=== PATIENT | male | born 1980 | race Caucasian/White ===

== ENCOUNTER 2024-12-27 19:34 | Emergency (ER) | payer BC, SELFPAY ==
[2024-12-27 19:46] VITALS: BP 154/99; PULSE 80; RESP 18; TEMP 37.1; O2SAT 97; BMI 25.4
--- NOTE | 2024-12-27 20:12 | ED_ITS ---
HPI - General Adult General Chief complaint: Psychiatric Problem/Disorder Stated complaint: Mental health Time Seen by Provider: 12/27/24 19:36 History of Present Illness HPI narrative: Patient is a 44-year-old gentleman who has been increasingly anxious the last week or so. He is having increasing racing thoughts. Difficulty sleeping. He had some thoughts of suicidal ideation last night. Who at urgent care earlier today was given a prescription for trazodone. He took 1 and that did help. He comes emergency room with his is very concerned. The patient has no previous history of any psychiatric problems is otherwise healthy. He declines any alcohol or drug use. He has otherwise been feeling in good health. Related Data Home Medications ?Medication ?Instructions ?Recorded ?Confirmed trazodone 50 mg tablet 50 mg PO QHS PRN 12/27/24 12/27/24 Allergies Allergy/AdvReac Type Severity Reaction Status Date / Time No Known Drug Allergies Allergy Verified 12/27/24 19:56 Review of Systems Status of ROS: Reports: 10 or more systems reviewed and unremarkable except as noted in History and below Exam Narrative: Exam Narrative: EXAM GENERAL: Patient appears extremely anxious. EYES: No scleral icterus. LYMPH: No supraclavicular or cervical lymphadenopathy. SKIN: Visible skin seen during exam normal or with benign process only. EXT: No dependent lower extremity pedal edema. HEART: Regular rate and rhythm with no murmurs, rubs, or gallops. LUNGS: Clear to auscultation bilaterally with no crackles or wheezes. ABD: Soft, non tender, non distended. PSYCH: Speech is pressured. Poor eye contact. Const: Vital Signs, click to edit/add: Vital Signs - 24 hr 12/27/24 19:46 Temperature 98.8 F Pulse Rate [Left P ulse Oximeter] 80 Respiratory Rate 18 Blood Pressure [Ri ght Upper Arm] 154/99 H Pulse Oximetry 97 Oxygen Delivery Me thod Room Air Course Course ED Course: Patient seen and examined. Standard laboratory studies collected. Mental health consultation requested. Reevaluation(s) Reevaluation #1: Smoked a mental health provider. Patient is suicidal and warrants placement. Lab workup is unremarkable. Patient remaining as voluntary at this point. Vital Signs Vital signs: Initial Vital Signs Temperature 98.8 F 12/27/24 19:46 Temperature Source Temporal Artery Scan 12/27/24 19:46 Pulse Rate 80 12/27/24 19:46 Pulse Rhythm Regular 12/27/24 19:46 Respiratory Rate 18 12/27/24 19:46 Blood Pressure 154/99 H 12/27/24 19:46 Blood Pressure Mean 117 H 12/27/24 19:46 Blood Pressure Position Sitting 12/27/24 19:46 Pulse Oximetry 97 12/27/24 19:46 Oxygen Delivery Method Room Air 12/27/24 19:46 Vital Signs Temperature 98.8 F 12/27/24 19:46 Pulse Rate 80 12/27/24 19:46 Respiratory Rate 18 12/27/24 19:46 Blood Pressure 154/99 H 12/27/24 19:46 Pulse Oximetry 97 12/27/24 19:46 Oxygen Delivery Method Room Air 12/27/24 19:46 Temperature 98.8 F 12/27/24 19:46 Pulse Rate 80 12/27/24 19:46 Respiratory Rate 18 12/27/24 19:46 Blood Pressure 154/99 H 12/27/24 19:46 Pulse Oximetry 97 12/27/24 19:46 Oxygen Delivery Method Room Air 12/27/24 19:46 Medications Administered Medications: Discontinued Medications Generic Name Dose Route Start Last Admin Trade Name Freq PRN Reason Stop Dose Admin Lorazepam 1 mg 12/27/24 22:21 12/27/24 22:25 Lorazepam 1 Mg Tablet PO 12/27/24 22:22 1 mg ONCE ONE Administration Medical Decision Making Lab Data Labs: Lab Results 12/27/24 12/27/24 Range/Units 20:25 20:30 WBC 10.08 (4.50-11.00) K/uL RBC 4.93 (4.30-5.90) m/uL Hgb 15.2 (13.5-17.5) gm/dL Hct 45.3 (37.0-53.0) % MCV 92 (80-100) fL MCH 31 (26-34) pg MCHC 34 (32-36) gm/dL RDW Coeff of Octavio 12.3 (11.5-15.5) % Plt Count 313 (140-440) K/uL Neut % (Auto) 75.3 H (42.0-72.0) % Lymph % (Auto) 16.4 L (20-44) % [place] % (Auto) 6.8 (0.0-11.0) % Eos % (Auto) 1.2 (0.0-7.0) % Baso % (Auto) 0.2 (0.0-3.0) % Neut # (Auto) 7.60 H (1.7-7.0) K/uL Lymph # (Auto) 1.70 (0.90-2.90) K/uL [place] # (Auto) 0.70 (0.00-0.90) K/UL Eos # (Auto) 0.12 (0.00-0.50) K/uL Baso # (Auto) 0.02 (0.00-0.30) K/uL Abs Immat Gran (auto) 0.01 (0.00-0.30) K/uL Imm/Tot Granulo (auto) 0.1 % Sodium 138 (135-149) mmol/L Potassium 3.7 (3.6-5.1) mmol/L Chloride 105 (96-114) mmol/L Carbon Dioxide 26 (20-32) mmol/L Anion Gap 7 (7-15) mEq/L BUN 17 (5-24) mg/dL Creatinine 1.0 (0.5-1.5) mg/dL Estimated Creat Clear 96.23 Estimated GFR 96 ml/min Glucose 96 (60-115) mg/dL Calcium 9.1 (8.4-10.6) mg/dL Total Bilirubin 0.7 (0.1-1.5) mg/dL AST 29 (12-35) U/L ALT 33 (4-50) U/L Alkaline Phosphatase 80 (40-150) U/L Total Protein 7.3 (6.0-8.3) g/dL Albumin 4.5 (3.3-5.0) g/dL Salicylates < 1.0 L (1.0-10) mg/dL Urine Opiates Screen Negative (Negative) Ur Oxycodone Screen Negative (Negative) Urine Methadone Screen Negative (Negative) Acetaminophen < 10.0 (10.0-30.0) ug/mL Ur Barbiturates Screen Negative (Negative) U Tricyclic Antidepress Negative (Negative) Ur Phencyclidine Scrn Negative (Negative) Ur Amphetamines Screen Negative (Negative) U Methamphetamines Scrn Negative (Negative) U Benzodiazepines Scrn Negative (Negative) Urine Cocaine Screen Negative (Negative) U Marijuana (THC) Screen Negative (Negative) Ur Drug Screen Comment See Note Ethyl Alcohol < 0.01 (0.01-0.03) % SARS-CoV-2 (PCR) Negative SARS-CoV-2 (Negative) Influenza Type A (PCR) Negative PCR FLU A (Negative) Influenza Type B (PCR) Negative PCR FLU B (Negative) Discharge Plan Discharge Clinical Impression: Suicidal ideation Patient Disposition: Xfer Psychiatric Hosp Condition: Stable Activity Level: Other Discharge Diet: Other Prescriptions: No Action trazodone 50 mg tablet 50 mg PO QHS PRN Follow Up/Referrals: Provider,Not a Local [Primary Care Provider] - Stand Alone Forms: [employer] Info Instructions
--- OUTSIDE RECORDS SUMMARY | 2024-12-27 20:26 | XMS_ITS | Clinical Summary ---
Author Organization [facility] Address [address] [place] [id number] Care Team Providers Care Digital Marketing Specialist Name Role Phone Pcp, No Primary Care Provider Unavailabl e Allergies No known active allergies Medications dextroamphetamine -amphetamine (AdderalL) 10 mg tabletIndications :Attention deficit hyperactivity disorder (ADHD), predominantly inattentive type Take 1 Tablet (10 mg) by mouth two times daily. 60 Tablet 3 Active Additional Information Patient not taking.Reported on 12/27/2024 dextroamphetamine -amphetamine (AdderalL) 10 mg tabletIndications :Attention deficit hyperactivity disorder (ADHD), predominantly inattentive type Take 1 Tablet (10 mg) by mouth two times daily. 60 Tablet 3 Active Additional Information Patient not taking.Reported on 12/27/2024 trimethoprim-sulf amethoxazole 160-800 mg tabIndications:Th igh abscess Take 1 Tablet by mouth two times daily. 20 Tablet 4 Active Additional Information Patient not taking.Reported on 12/27/2024 traZODone 50 mg tabletIndications :Insomnia, idiopathic Take 1-3 Tablets (50-150 mg) by mouth at bedtime if needed. 30 Tablet 1 12/27/2024 11:52 AM CDT 5 Active Active Problems No known active problems Encounters Date Type Department Care Team Description 12/27/2024 11:00 AM CDT Office Visit [facility] [address] [place] [address] Eusebio Babin MD Anxiety 12/27/2024 Travel 12/26/2024 Nurse Triage [facility] [id number] [place] [phone] Pcp, No Error-please disregard from Last 3 Months Immunizations Immunization Administration Dates Next Due Td (Age >=7 Years) 02/16/1998 Tdap 12/19/2016,12/12/2006 Social History Tobacco Use Types Packs/Day Years Used Date Smoking Tobacco: Every Day Cigarettes 0.3 25.1 Started: 11/04/1999 Smokeless Tobacco: Never Tobacco Cessation:Ready to Q uit: Not Asked; Counseling Given: Not Answered Comments:recommened nicorette gum and patch Alcohol Use Standard Drinks/Week Comments Not Currently 0 (1 standard drink = 0.6 oz pur e alcohol) PHQ-2 Answer Date Recorded PHQ-2 TOTAL SCORE 0 02/22/2022 Social Connections Answer Date Recorded Do you often feel lonely or isolated from those around you? 0 05/01/2024 Financial Resource Strain Answer Date R ecorded Difficulty of Paying Living Expenses 3 05/01/2024 Difficulty of Paying Living Expenses Not on file 05/01/2024 Food Insecurity Answer Date Recorded Do you worry your food will run out before you are able to buy more? 1 05/01/2024 Transportation Needs Answer Date Record ed Does lack of transportation keep you from medica l appointments? 1 05/01/2024 Does lack of transportation keep you from work, meetings or getting things that you need? 1 05/01/2024 Housing Stability Answer Date Recorded What is your housing situation today? 1 05/01/2024 Utilities Answer Date Recorded Do you have trouble paying f or utilities (for example, heat, electricity, water, phone)? 1 05/01/2024 Sex and Gender Information Value Date Recorded Sex Assigned at Not on file Legal Sex Male 5:27 AM TREATMENT MANAGER Gender Identity Not on file Sexual Orientation Not on file Obstetrics History Last Filed Vital Signs Vital Sign Reading Time Taken Comments Blood Pressure 143/87 12/27/2024 10:59 AM CDT Pulse 93 12/27/2024 10:59 AM CDT Temperature 37.1 C (98.8 F) 12/27/2024 10:59 AM CDT Respiratory Rate 16 12/27/2024 10:59 AM CDT Oxygen Saturation 97% 12/27/2024 10:59 AM CDT Inhaled Oxygen Concentration - - Weight 78.2 kg (172 lb 4.8 oz) 12/27/2024 10:59 AM CDT Height 172.7 cm (5' 8) 08/30/2022 11:04 AM TREATMENT MANAGER Body Mass Index 26.2 08/30/2022 11:04 AM TREATMENT MANAGER Plan of Treatment Upcoming Encounters Date Type Department Care Team (Late st Contact Info) Description 01/01/2025 4:00 PM CDT Office Visit [facility] [address] [place] [address] [place] [address] [place] [address] Health Maintenance Due Date Last Done Comments HIV for age 15-65 1997 Hepatitis C screening for ag e 18-79 2000 Pneumococcal series for age 6-49 (1 of 2 - PCV) 2001 Depression screening for age 12+ 02/22/2023 02/22/2022, 02/03/2021, 11/03/2020 BMI (ht and wt on same day) for age 18+ 08/30/2023 08/30/2022, 02/22/2022, 11/22/2021, Additional history exists COVID-19 vaccine series ( season) 2024 12/22/2021, 12/01/2021 Influenza Vaccine (Season Ended) 2025 Lipids for age 35-44 02/03/2026 02/03/2021 Tetanus booster 12/19/2026 12/19/2016, 12/02, 02/16/1998 Tdap Completed 12/19/2016, 12/12/2006 Procedures Procedure Name Priority Date/Time Associated Diagnosis Comments LIPID PANEL W REFLEX MEASURED LDL Routine 02/03/2021 5:54 PM CDT Routine general medical examination at a health care facility from Last 3 Months or Most Recently Relevant to Health Maintenance Results * (ABNORMAL) LIPID PANEL W REFLEX MEASURED LDL (02/03/2021 5:54 PM CDT) CHOLESTEROL,TOTAL 219(H) 100 - 199 mg/dL 02/03/2021 10:31 PM CDT [facility] TRIGLYCERIDES 98 <150 mg/dL 02/03/2021 10:31 PM CDT [facility] HDL CHOLESTEROL 67 >40 mg/dL 10:31 PM CDT [facility] NON-HDL CHOLESTEROL 152(H) <145 mg/dl 02/03/2021 10:31 PM CDT [facility] CHOL/HDL RATIO 3.27 <4.50 02/03/2021 10:31 PM CDT [facility] LDL CHOLESTEROL 132(H) <=130 mg/dL 02/03/2021 10:31 PM CDT [facility] VLDL CHOLESTEROL 20 mg/dL 02/04/20 10:31 PM CDT [facility] PROVIDER ORDERED STATUS RANDOM 02/03/2021 10:31 PM CDT [facility] Blood BLOOD SPECIMEN / Unknown Venipuncture / Unknown 02/03/2021 5:54 PM CDT 02/03/2021 5:55 PM CDT us Franck Leal MD CHEMISTRY Final R esult [facility] [address] [place] [address], from Last 3 Months or Most Recently Relevant to Health Maintenance Insurance [employer] [place] [id number] Care Teams Digital Marketing Specialist Relationship Specialty Start Date End Date Pcp, No . PCP - General 02/21/24
[2024-12-27 20:31] LABS: Basophils Absolute Auto 0.02 K/uL (0.00-0.30); Basophils Percent Auto 0.2 % (0.0-3.0); Eosinophils Absolute Auto 0.12 K/uL (0.00-0.50); Eosinophils Percent Auto 1.2 % (0.0-7.0); Hematocrit 45.3 % (37.0-53.0); Hemoglobin* 15.2 gm/dL (13.5-17.5); Immature Granulocytes Abs Auto 0.01 K/uL (0.00-0.30); Immature Granulocytes Pct Auto 0.1 %; Lymphocytes Percent Auto 16.4 % (20-44); Mean Corpuscular HGB Conc 34 gm/dL (32-36); Mean Corpuscular Hemoglobin 31 pg (26-34); Mean Corpuscular Volume 92 fL (80-100); Monocytes Percent Auto 6.8 % (0.0-11.0); Neutrophils Percent Auto 75.3 % (42.0-72.0); Platelet Count* 313 K/uL (140-440); RDW Coefficient of Variation % 12.3 % (11.5-15.5); Red Blood Count 4.93 m/uL (4.30-5.90); White Blood Count* 10.08 K/uL (4.50-11.00)
[2024-12-27 20:35] LABS: Slide Review Reflex No
[2024-12-27 20:45] LABS: Albumin* 4.5 g/dL (3.3-5.0); Chloride* 105 mmol/L (96-114); Potassium* 3.7 mmol/L (3.6-5.1); Sodium* 138 mmol/L (135-149)
[2024-12-27 20:46] LABS: Amphetamine Screen Urine Negative (Negative); Barbiturate Screen Urine Negative (Negative); Benzodiazepines Screen Urine Negative (Negative); Cannabinoid Screen Urine Negative (Negative); Cocaine Screen Urine Negative (Negative); Methadone Screen Urine Negative (Negative); Methamphetamines Screen Urine Negative (Negative); Opiate Screen Urine Negative (Negative); Oxycodone Screen Urine Negative (Negative); Phencyclidine Screen Urine Negative (Negative); Tricyclic Antidepressant Urine Negative (Negative)
[2024-12-27 20:47] LABS: Alanine Aminotransferase* 33 U/L (4-50); Anion Gap 7 mEq/L (7-15); Aspartate Amino Transferase* 29 U/L (12-35); Blood Urea Nitrogen* 17 mg/dL (5-24); Carbon Dioxide* 26 mmol/L (20-32); Est. Creatinine Clearance* 96.23; Estimated Glomerular Filt Rate 96 ml/min
[2024-12-27 20:48] LABS: Alkaline Phosphatase* 80 U/L (40-150); Bilirubin Total* 0.7 mg/dL (0.1-1.5); Calcium* 9.1 mg/dL (8.4-10.6); Glucose* 96 mg/dL (60-115); Total Protein* 7.3 g/dL (6.0-8.3)
[2024-12-27 20:50] LABS: Acetaminophen* < 10.0 ug/mL (10.0-30.0); Ethanol* < 0.01 % (0.01-0.03); Salicylate* < 1.0 mg/dL (1.0-10)
--- NOTE | 2024-12-27 20:53 | ED.NURSE ---
[facility] started and in room
[2024-12-27 21:17] LABS: PCR FLU A Negative PCR FLU A (Negative); PCR FLU B Negative PCR FLU B (Negative); SARS PCR* Negative SARS-CoV-2 (Negative)
[2024-12-27] MEDS: LORazepam 1 MG TABLET PO (22:25)
--- NOTE | 2024-12-27 22:30 | ED.NURSE ---
Pt and given update on bed situation, most places are at full capacity and [facility] is reviewing the case. Unknown time when when case will be reviewed.
--- NOTE | 2024-12-28 00:30 | ED.NURSE ---
[facility] accepted patient. Upon hanging up the phone with [facility] staff, the patient and walked out of the department.
--- NOTE | 2024-12-28 00:30 | PC.NURSE ---
pt eloped to parking lot. Followed pt to car with another staff member. Patient found smoking outside car with . Told them that a bed was available and we were about to secure transport. Patient's states, I just don't have much more time to wait in me. She asked if he wanted to go back in and go to the hospital. Did not hear his statement to her but patient's states, No, we are going to go home now. Did explain that if they leave we have to start this process all over from the beginning. Pt verbalizes understanding. They both got in vehicle and left.
--- NOTE | 2024-12-28 00:32 | ED.NURSE ---
At 2300, this nurse asked pt x2 if he needed anything to eat or drink or if he needed a warm blanket? Pt staes he is fine and declines food or drink or comfort measures.
--- NOTE | 2024-12-28 00:41 | ED.NURSE ---
Called [facility], informed that the patient eloped from the ER.
== END 2024-12-28 00:45 | disposition left against medical advice (07) ==
PROVIDERS: Emergency Provider Internal Medicine
DX: R45.851 Suicidal ideations (principal)
CPT/HCPCS: 36415; 80053; 80143; 80179; 80306; 82077; 85025; 87631; 99283; 99285; Q3014; A9270

== ENCOUNTER 2025-04-22 10:02 | Outpatient (CLI) | payer BC, SELFPAY | END 2025-04-22 10:03 | disposition home or self-care (01) | LOC: AMB 04-23 09:11 | PROVIDERS: Visit Provider Family Medicine | DX: H53.9 Unspecified visual disturbance (principal); I10 Essential (primary) hypertension | CPT/HCPCS: A0998 ==